=== PATIENT | male | born 1965 | race Caucasian/White ===

== ENCOUNTER 2020-12-31 18:19 | Emergency (ER) | payer OTHER ==
[~2020-12-31] VITALS: Ht 177.8 cm; Wt 92.8 kg
[~2020-12-31 18:19] MED LIST: CIPR500T4 PO; CITA20TA6 PO; CLON0.1T22 PO; CODE BLUE RESPONSE XX ONE; DEXTROSE 50%, 50ML SYRINGE ONE; EPINEPHRINE SYRINGE 0.1 MG/ML, 10ML ONE; FLUT50DI NAS; HYDR-3237 PO; LISI-170 PO; METO50TA82 PO; TOPI25TA8 PO
--- NOTE | 2020-12-31 18:19 | NUR ---
BIBA WITH CARDIAC ARREST/CPR IN PROCESS, HX DM; PER EMS: PT CALLED [facility] C/O SYNCOPE/DIZZINESS WITH HM BG 555 AFTER SELF-ADMIN 20U INS X2 TODAY, [facility] ARRIVED & WITNESS PT SELF-ADMIN 3RD DOSE 20U INS, RECHECKED BG 425 THEN WITNESSED CARDIAC ARREST, 2 DOSES EPI GIVEN DURING CPR CHANGE MANAGEMENT FACILITATOR. PER EMS- FAMILY EN ROUTE TO [facility].
[2020-12-31] MEDS ORDERED: SODIUM BICARB 8.4%, 50ML SYRINGE ONE ×2 (18:27→18:30)
[2020-12-31] MEDS ORDERED: CALCIUM CHLORIDE 10%, 10ML SYR ONE (18:27)
[2020-12-31] MEDS ORDERED: EPINEPHRINE SYRINGE 0.1 MG/ML, 10ML ONE (18:30)
--- NOTE | 2020-12-31 18:30 | NUR ---
UNABLE TO RESCUSITATE DESPITE CPR WITH SEVERAL ROUNDS EPI/HCO3/D50 & CA+, TOD 1829. AWAITING FAMILY ARRIVAL.
--- NOTE | 2020-12-31 19:14 | NUR ---
[facility] CONTACTED. REFERRAL ID [id number].
--- NOTE | 2020-12-31 19:15 | NUR ---
REPORT GIVEN TO KASSY
--- NOTE | 2020-12-31 19:35 | NUR ---
per erp family aware and en route via cab.
--- NOTE | 2020-12-31 19:50 | NUR ---
PER MORENA AT [facility] OFFICE, PT WILL NOT BE A CORONERS CASE. WANTS A CALL BACK TO KNOW IF NEXT OF KIN IS LEGALLY
--- NOTE | 2020-12-31 20:03 | NUR ---
NOW PRESENT SPEAKING TO DR VEGA AND SOCIAL WORK
--- NOTE | 2020-12-31 20:27 | NUR ---
[facility] WILL CALL BACK TO SEE IF HOME HAS PICKED UP
== END 2020-12-31 21:26 | disposition expired ==
LOC: ED 21:06
DX: I46.9 Cardiac arrest, cause unspecified (principal); E10.65 Type 1 diabetes mellitus with hyperglycemia; F17.200 Nicotine dependence, unspecified, uncomplicated
CPT/HCPCS: 92950; 99285